=== PATIENT | male | born 1950 | race Caucasian/White ===

== ENCOUNTER → 2017-12-04 15:23 | Outpatient (CLI) | payer OTHER, SELFPAY ==
[2017-12-04 16:29] LABS: Alanine Aminotransferase 34 IU/L (21-72); Albumin 4.7 g/dL (3.5-5.0); Albumin Globulin Ratio 1.6 (1.0-2.8); Alkaline Phosphatase 112 U/L (38-126); Aspartate Aminotransferase 23 IU/L (17-59); BUN Creatinine Ratio 21.1 (6-22); Bilirubin Total 0.6 mg/dL (0.2-1.3); Blood Urea Nitrogen 19 mg/dL (9-20); Calcium 9.7 mg/dL (8.4-10.2); Carbon Dioxide 25 mmol/L (22-32); Chloride 106 mmol/L (98-107); Cholesterol 179 mg/dL (140-199); Estimated Glomerular Filt Rate > 60.0 mL/min (>60); Globulin 2.9 g/dL (1.7-4.1); Glucose 79 mg/dL (80-110); HDL Cholesterol 77 mg/dL (40-60); HEMOLYSIS < 15 (0-50); LDL Cholesterol Calculated 84 mg/dL (<100); Sodium 142 mmol/L (137-145); Total Protein 7.6 g/dL (6.3-8.2); Triglycerides 92 mg/dL (35-150)
== END ==
PROVIDERS: Family Provider Family Medicine; Visit Provider Internal Medicine
DX: E83.119 Hemochromatosis, unspecified (principal); I10 Essential (primary) hypertension
CPT/HCPCS: 36415; 80053; 80061

== ENCOUNTER → 2018-04-17 09:55 | Outpatient (CLI) | payer OTHER, SELFPAY ==
[2018-04-17 11:10] LABS: Hematocrit 41.7 % (41-53); Hemoglobin 14.3 g/dL (13.5-17.5); Mean Corpuscular HGB Conc 34.2 % (30-36); Mean Corpuscular Hemoglobin 31.2 PG (26-34); Mean Corpuscular Volume 91.2 fL (80-100); Platelet Count 197 X10^3/uL (150-400); Red Blood Cell Count 4.57 X10^6/uL (4.5-5.9); Red Cell Distribution Width 13.2 % (11.6-14.8); White Blood Cell Count 4.6 X10^3/uL (4.5-11.0)
[2018-04-17 11:34] LABS: Alanine Aminotransferase 48 IU/L (21-72); Albumin 4.9 g/dL (3.5-5.0); Albumin Globulin Ratio 1.8 (1.0-2.8); Alkaline Phosphatase 121 U/L (38-126); Aspartate Aminotransferase 26 IU/L (17-59); BUN Creatinine Ratio 22.2 (6-22); Bilirubin Total 0.5 mg/dL (0.2-1.3); Blood Urea Nitrogen 20 mg/dL (9-20); Calcium 9.6 mg/dL (8.4-10.2); Carbon Dioxide 23 mmol/L (22-32); Chloride 105 mmol/L (98-107); Estimated Glomerular Filt Rate > 60.0 mL/min (>60); Globulin 2.8 g/dL (1.7-4.1); Glucose 145 mg/dL (80-110); HEMOLYSIS < 15 (0-50); Potassium 4.2 mmol/L (3.4-5.1); Sodium 144 mmol/L (137-145); Total Protein 7.7 g/dL (6.3-8.2)
== END ==
PROVIDERS: Family Provider Family Medicine; PCP Family Medicine; Visit Provider Internal Medicine Gastroenterology
DX: K51.90 Ulcerative colitis, unspecified, without complications (principal)
CPT/HCPCS: 36415; 80053; 85027

== ENCOUNTER → 2018-06-28 10:58 | Outpatient (CLI) | payer OTHER, SELFPAY ==
--- NOTE | 2018-06-28 11:00 | DI.US.S_ITS ---
PROCEDURE: US ABD AORTA ANEURYSM SCREEN INDICATIONS: AAA, HISTORY OF SMOKING TECHNIQUE: Real time scanning was performed of the aorta and iliac arteries, with image documentation. COMPARISON: [facility], US, ABDOMEN COMPLETE, 02/13/2009, 11:19. FINDINGS: Aorta: Proximal aortic diameter measures 2.8 cm. Mid-aorta measures 2.1 cm. Distal aortic diameter is 2.1 cm. Iliac arteries: Not seen, obscured by overlying bowel gas. IMPRESSION: Negative for aneurysm. Dictated by: Josemanuel Knox M.D. on 06/28/2018 at 11:38 Approved by: Josemanuel Knox M.D. on 06/28/2018 at 11:39
== END ==
PROVIDERS: PCP Student in an Organized Health Care Education/Training Program; Visit Provider Student in an Organized Health Care Education/Training Program
DX: Z13.6 Encounter for screening for cardiovascular disorders (principal); Z87.891 Personal history of nicotine dependence
CPT/HCPCS: 76706

== ENCOUNTER → 2019-04-02 10:47 | Outpatient (CLI) | payer OTHER, SELFPAY ==
[2019-04-02 11:36] LABS: Hematocrit 40.3 % (41-53); Hemoglobin 13.7 g/dL (13.5-17.5); Mean Corpuscular HGB Conc 33.9 % (30-36); Mean Corpuscular Hemoglobin 31.8 PG (26-34); Mean Corpuscular Volume 93.6 fL (80-100); Platelet Count 185 X10^3/uL (150-400); Red Blood Cell Count 4.31 X10^6/uL (4.5-5.9); White Blood Cell Count 5.3 X10^3/uL (4.5-11.0)
[2019-04-02 12:00] LABS: HEMOLYSIS < 15 (0-50); Iron 205 ug/dL (49-181)
[2019-04-02 12:06] LABS: Alanine Aminotransferase 27 IU/L (21-72); Albumin 4.8 g/dL (3.5-5.0); Albumin Globulin Ratio 1.6 (1.0-2.8); Alkaline Phosphatase 106 U/L (38-126); Aspartate Aminotransferase 24 IU/L (17-59); Bilirubin Total 0.7 mg/dL (0.2-1.3); Blood Urea Nitrogen 19 mg/dL (9-20); Calcium 9.9 mg/dL (8.4-10.2); Carbon Dioxide 28 mmol/L (22-32); Chloride 104 mmol/L (98-107); Estimated Glomerular Filt Rate > 60.0 mL/min (>60); Glucose 90 mg/dL (80-110); HEMOLYSIS < 15 (0-50); Potassium 4.6 mmol/L (3.4-5.1); Sodium 141 mmol/L (137-145); Total Protein 7.8 g/dL (6.3-8.2)
[2019-04-02 12:11] LABS: Percent Iron Saturation 76 % (20-50); Total Iron Binding Capacity 271 ug/dL (261-462); Transferrin 237 mg/dL (206-381)
[2019-04-02 12:16] LABS: Vitamin D 25 Hydroxy (D3) 49.3 ng/mL (30.0-100.0)
[2019-04-02 12:36] LABS: Prostate Specific Antigen Scrn 0.188 ng/mL (0.1-4.0)
== END ==
PROVIDERS: PCP Student in an Organized Health Care Education/Training Program; Visit Provider Student in an Organized Health Care Education/Training Program
DX: E55.9 Vitamin D deficiency, unspecified (principal); E83.119 Hemochromatosis, unspecified; I10 Essential (primary) hypertension; Z12.5 Encounter for screening for malignant neoplasm of prostate
CPT/HCPCS: 36415; 80053; 82306; 82728; 83540; 83550; 85027; G0103

== ENCOUNTER → 2019-05-17 09:52 | Outpatient (CLI) | payer OTHER, SELFPAY ==
[2019-05-17 10:24] LABS: 585 Gram Check PASS; Dizziness NO; Postdiastolic BP 98; Postsystolic BP 141; Prediastolic 96; Presystolic 157; Pulse 71; Site of phlebotomy RAC; Swelling NO; Therapeutic Phleb Comment NO COMMENT; Zero Check Sebra Scale PASS
== END ==
PROVIDERS: PCP Student in an Organized Health Care Education/Training Program; Visit Provider Student in an Organized Health Care Education/Training Program
DX: E83.119 Hemochromatosis, unspecified (principal)
CPT/HCPCS: 99195

== ENCOUNTER → 2019-06-17 10:11 | Outpatient (CLI) | payer OTHER, SELFPAY ==
[2019-06-17 12:47] LABS: Hematocrit 40.8 % (41-53); Hemoglobin 14.3 g/dL (13.5-17.5); Mean Corpuscular HGB Conc 34.9 % (30-36); Mean Corpuscular Hemoglobin 32.5 PG (26-34); Mean Corpuscular Volume 93.1 fL (80-100); Platelet Count 192 X10^3/uL (150-400); Red Blood Cell Count 4.39 X10^6/uL (4.5-5.9); Red Cell Distribution Width 13.1 % (11.6-14.8); White Blood Cell Count 5.6 X10^3/uL (4.5-11.0)
[2019-06-17 13:38] LABS: HEMOLYSIS < 15 (0-50); Iron 201 ug/dL (49-181)
[2019-06-17 13:49] LABS: Percent Iron Saturation 76 % (20-50); Total Iron Binding Capacity 266 ug/dL (261-462); Transferrin 243 mg/dL (206-381)
== END ==
PROVIDERS: PCP Student in an Organized Health Care Education/Training Program; Visit Provider Student in an Organized Health Care Education/Training Program
DX: E83.119 Hemochromatosis, unspecified (principal)
CPT/HCPCS: 36415; 82728; 83540; 83550; 85027

== ENCOUNTER → 2019-07-31 09:45 | Outpatient (CLI) | payer OTHER, SELFPAY ==
[2019-07-31 10:30] LABS: 585 Gram Check PASS; Dizziness NO; Postdiastolic BP 89; Postsystolic BP 136; Prediastolic 93; Presystolic 140; Pulse 72; Site of phlebotomy RAC; Swelling NO; Therapeutic Phleb Comment NO COMMENT; Zero Check Sebra Scale PASS
== END ==
PROVIDERS: PCP Student in an Organized Health Care Education/Training Program; Referring Provider Student in an Organized Health Care Education/Training Program; Visit Provider Student in an Organized Health Care Education/Training Program
DX: E83.119 Hemochromatosis, unspecified (principal)
CPT/HCPCS: 99195

== ENCOUNTER → 2020-03-09 10:16 | Outpatient (CLI) | payer OTHER, SELFPAY ==
[2020-03-09 11:44] LABS: Hematocrit 39.5 % (41-53); Hemoglobin 13.7 g/dL (13.5-17.5); Mean Corpuscular HGB Conc 34.8 % (30-36); Mean Corpuscular Hemoglobin 32.6 PG (26-34); Mean Corpuscular Volume 93.7 fL (80-100); Platelet Count 210 X10^3/uL (150-400); Red Blood Cell Count 4.22 X10^6/uL (4.5-5.9); Red Cell Distribution Width 13.4 % (11.6-14.8)
[2020-03-09 12:05] LABS: Alanine Aminotransferase 32 IU/L (<50); Albumin 4.8 g/dL (3.5-5.0); Albumin Globulin Ratio 1.5 (1.0-2.8); Alkaline Phosphatase 115 U/L (38-126); Aspartate Aminotransferase 26 IU/L (17-59); BUN Creatinine Ratio 18.4 (6-22); Bilirubin Total 0.5 mg/dL (0.2-1.3); Blood Urea Nitrogen 18 mg/dL (9-20); Calcium 9.7 mg/dL (8.4-10.2); Carbon Dioxide 28 mmol/L (22-32); Chloride 103 mmol/L (98-107); Estimated Glomerular Filt Rate > 60.0 mL/min (>60); Globulin 3.3 g/dL (1.7-4.1); Glucose 88 mg/dL (80-110); HEMOLYSIS < 15 (0-50); Potassium 4.3 mmol/L (3.4-5.1); Sodium 140 mmol/L (137-145); Total Protein 8.1 g/dL (6.3-8.2)
== END ==
PROVIDERS: PCP Student in an Organized Health Care Education/Training Program; Referring Provider Internal Medicine Gastroenterology; Visit Provider Internal Medicine Gastroenterology
DX: K51.90 Ulcerative colitis, unspecified, without complications (principal)
CPT/HCPCS: 36415; 80053; 85027

== ENCOUNTER 2020-08-20 19:24 | Emergency (ER) | payer OTHER, SELFPAY ==
[2020-08-20] VITALS (8 sets, daily range): BP systolic 118–180; BP diastolic 79–109; PULSE 72–86; RESP 9–21; TEMP 36.7; O2SAT 92–99; BMI 29.3
[2020-08-20 19:45] LABS: Add Manual Diff / Slide Review NO; Basophils Absolute Auto 100 /uL (0-100); Basophils Percent Auto 1.9 % (0-2); Eosinophils Absolute Auto 600 /uL (0-450); Eosinophils Percent Auto 8.5 % (2-4); Hematocrit 44.3 % (41-53); Hemoglobin 14.8 g/dL (13.5-17.5); Lymphocytes Absolute Auto 1700 /uL (1100-4500); Lymphocytes Percent Auto 23.4 % (25-40); Mean Corpuscular HGB Conc 33.4 % (30-36); Mean Corpuscular Volume 89.8 fL (80-100); Monocytes Absolute Auto 500 /uL (0-900); Monocytes Percent Auto 7.5 % (3-14); Neutrophils Absolute Auto 4200 /uL (1500-7000); Neutrophils Percent Auto 58.7 % (50-75); Platelet Count 230 X10^3/uL (150-400); Red Blood Cell Count 4.93 X10^6/uL (4.5-5.9); Red Cell Distribution Width 14.6 % (11.6-14.8); White Blood Cell Count 7.2 X10^3/uL (4.5-11.0)
--- NOTE | 2020-08-20 19:52 | ED.GENADULT ---
HPI - General Adult General Chief complaint: Toxicology Problem Stated complaint: ETOH Time Seen by Provider: 08/20/20 19:26 Source: patient, family and EMS Mode of arrival: EMS Limitations: no limitations History of Present Illness HPI narrative: 70-year-old male who arrives with his and EMS for evaluation of alcohol intoxication and potential medication overdose. Patient does admit to drinking alcohol throughout the day today. He stated that in order to ?have some fun ?he took some of his gabapentin. He states that he was not trying to hurt or kill himself. Initially was reported that he took some of his other medicines to include propanolol but the patient denied this. He is somewhat unsure as to exactly how much of the gabapentin he took but did tell me that was only 1 tablet. He reports no symptoms. He denies any other drug use. His was the 1 who contacted EMS. Related Data Home Medications Medication Instructions Recorded Confirmed mesalamine 1.2 gram tablet,delayed 2.4 gram PO DAILY 02/14/18 08/20/20 release Respironics DreamStation Auto CPAP #1 ea 07/17/18 06/23/20 eszopiclone 2 mg PO DAILY 08/20/20 08/20/20 gabapentin 100 mg PO TID 08/20/20 08/20/20 Previous Rx's Medication Instructions Recorded lisinopril 40 mg tablet 40 mg PO QDAY #90 tab 07/26/19 fluoxetine 20 mg tablet 40 mg PO DAILY #180 tab 03/25/20 amlodipine 5 mg tablet 5 mg PO DAILY #90 tab 03/30/20 propranolol 20 mg tablet 20 mg PO BID #60 tab 06/19/20 Allergies Allergy/AdvReac Type Severity Reaction Status Date / Time erythromycin base Allergy Mild SEVERE GI Verified 08/20/20 19:36 UPSET Penicillins Allergy Mild CHILDHOOD/RASH/ITCH Verified 08/20/20 19:36 ON CHEST clindamycin [CLINDAMYCIN] Allergy Unknown Verified 08/20/20 19:36 Review of Systems Constitutional Constitutional: Denies fever(s) and Denies headache(s) ENT Ears, Nose, Mouth, and Throat: Denies headache(s) Cardiovascular Cardiovascular: Denies chest pain and Denies dyspnea Respiratory Respiratory: Denies dyspnea Gastrointestinal Gastrointestinal: Denies abdominal pain Musculoskeletal Musculoskeletal: Denies arthralgias and Denies myalgias Integumentary/Breasts Skin/Breast: Denies rash Neurologic Neurologic: Denies behavioral changes and Denies headache(s) Psychiatric Psychiatric: Denies behavioral changes Hematologic/Lymphatic On Anticoagulants: No Allergic/Immunologic Allergic/Immunologic: Denies urticaria Patient History Medical History ADHD (attention deficit hyperactivity disorder) (2013) Anemia Anxiety (2013) Chicken pox Colitis (1989) Colon polyps (2013) Cubital tunnel syndrome of both upper extremities (2013) Depression (1989) Hemochromatosis, hereditary (2012) Herpes (1977) Hyperlipidemia (2004) Hypertension (2006) Measles Mumps Performance anxiety Shingles (1977) Sleep apnea (2011) Ulcerative colitis (1989) Surgical History Anesthesia History of liver biopsy (~2013) Status post colonoscopy (1991) Family History Mother Hypertension Father Aditi's disease, pulmonary Grandfather No problems noted. Grandmother No problems noted. Grandfather No problems noted. Grandmother No problems noted. Social History marital status: details: shantell Bradley, lives [place] [facility]. 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 Smoking Status: Current some day smoker Smoking Status: Current some day smoker tobacco type: cigarettes alcohol intake frequency: a few times a month Alcohol type: beer and hard liquor Substance Use Type: does not use Exam Initial Vital Signs Initial Vital Signs: Vital Signs Temperature 98.0 F 08/20/20 19:15 Pulse Rate 86 08/20/20 19:15 Respiratory Rate 18 08/20/20 19:15 Blood Pressure 180/109 H 08/20/20 19:15 Pulse Oximetry 98 08/20/20 19:15 Const General: cooperative and comfortable Limitations: other limitations (Intoxication) [facility] Head: normal to inspection and normocephalic Resp Effort & Inspection: normal respiratory effort Auscultation: clear to auscultation bilaterally Cardio Rate: regular rate Rhythm: regular rhythm GI Inspection: non-distended Palpation: soft Skin Lesions: no lesions Rashes: no rashes Neuro General: patient alert, patient awake and patient oriented x3 Speech: speech normal Extrem General: capillary refill normal Psych Appearance: grossly normal and well kempt Scores GCS [place] coma scale eye opening: Spontaneous [place] coma scale verbal response: Orientated [place] coma scale motor response: Obey commands [place] coma scale total score: 15 Course Orders Ordered: ED Orders 08/20/20 19:30 Acetaminophen Stat Complete Blood Count AUTO DIFF Stat Comprehensive Metabolic Panel Stat Ethanol (ETOH) Stat Lipase Stat Salicylate Stat Thyroid Stimulating Hormone Stat EKG-12 Lead Stat 08/20/20 21:24 Urinalysis and Microscopic Stat Urine Drug Screen, Rapid Stat Vital Signs Vital signs: Vital Signs - 8 hr 08/20/20 19:15 08/20/20 19:31 08/20/20 20:00 Temperature 98.0 F Pulse Rate 86 80 76 Respiratory Rate 18 13 Blood Pressure 180/109 H 180/109 H Pulse Oximetry 98 98 99 08/20/20 20:01 08/20/20 20:30 08/20/20 21:00 Temperature Pulse Rate 79 75 75 Respiratory Rate 19 14 9 L Blood Pressure 147/93 H 118/82 126/79 Pulse Oximetry 99 94 92 Medical Decision Making Lab Data Lab results reviewed: Yes I reviewed the patient's lab results. Result diagrams: 08/20/20 19:30 08/20/20 19:30 Labs: Lab Results 08/20/20 08/20/20 08/20/20 Range/Units 19:30 19:30 19:30 WBC 7.2 (4.5-11.0) X10^3/uL RBC 4.93 (4.5-5.9) X10^6/uL Hgb 14.8 (13.5-17.5) g/dL Hct 44.3 (41-53) % MCV 89.8 (80-100) fL MCH 30.0 (26-34) PG MCHC 33.4 (30-36) % RDW 14.6 (11.6-14.8) % Plt Count 230 (150-400) X10^3/uL Neut % (Auto) 58.7 (50-75) % Lymph % (Auto) 23.4 L (25-40) % [place] % (Auto) 7.5 (3-14) % Eos % (Auto) 8.5 H (2-4) % Baso % (Auto) 1.9 (0-2) % Neut # (Auto) 4200 (4229-5000) /uL Lymph # (Auto) 1700 (5917-4610) /uL [place] # (Auto) 500 (0-900) /uL Eos # (Auto) 600 H (0-450) /uL Baso # (Auto) 100 (0-100) /uL Sodium 148 H (137-145) mmol/L Potassium 4.3 (3.4-5.1) mmol/L Chloride 108 H (98-107) mmol/L Carbon Dioxide 29 (22-32) mmol/L BUN 20 (9-20) mg/dL Creatinine 0.92 (0.66-1.25) mg/dL Estimated GFR > 60.0 (>60) mL/min BUN/Creatinine Ratio 21.7 (6-22) Glucose 95 (80-110) mg/dL Calcium 10.3 H (8.4-10.2) mg/dL Total Bilirubin 0.5 (0.2-1.3) mg/dL AST 59 (17-59) IU/L ALT 76 H (<50) IU/L Alkaline Phosphatase 145 H (38-126) U/L Total Protein 9.2 H (6.3-8.2) g/dL Albumin 5.3 H (3.5-5.0) g/dL Globulin 3.9 (1.7-4.1) g/dL Albumin/Globulin Ratio 1.4 (1.0-2.8) Lipase 225 (23-300) U/L TSH (0.47-4.68) uIU/mL Urine Color Urine Appearance Urine pH (4.5-8.0) Ur Specific [place] (1.000-1.035) Urine Protein (Negative) Urine Glucose (UA) (Negative) g/dL Urine Ketones (NEGATIVE) Urine Occult Blood (Negative) Urine Nitrate (Negative) Urine Bilirubin (NEGATIVE) Urine Urobilinogen (0.2) E.U./dL Ur Leukocyte Esterase (NEGATIVE) Salicylates < 1.0 (<20) mg/dL Acetaminophen < 10 L (10-30) ug/mL Ethyl Alcohol 297 H ( - 10) mg/dL 08/20/20 08/20/20 Range/Units 19:30 21:24 WBC (4.5-11.0) X10^3/uL RBC (4.5-5.9) X10^6/uL Hgb (13.5-17.5) g/dL Hct (41-53) % MCV (80-100) fL MCH (26-34) PG MCHC (30-36) % RDW (11.6-14.8) % Plt Count (150-400) X10^3/uL Neut % (Auto) (50-75) % Lymph % (Auto) (25-40) % [place] % (Auto) (3-14) % Eos % (Auto) (2-4) % Baso % (Auto) (0-2) % Neut # (Auto) (7528-7717) /uL Lymph # (Auto) (9306-1579) /uL [place] # (Auto) (0-900) /uL Eos # (Auto) (0-450) /uL Baso # (Auto) (0-100) /uL Sodium (137-145) mmol/L Potassium (3.4-5.1) mmol/L Chloride (98-107) mmol/L Carbon Dioxide (22-32) mmol/L BUN (9-20) mg/dL Creatinine (0.66-1.25) mg/dL Estimated GFR (>60) mL/min BUN/Creatinine Ratio (6-22) Glucose (80-110) mg/dL Calcium (8.4-10.2) mg/dL Total Bilirubin (0.2-1.3) mg/dL AST (17-59) IU/L ALT (<50) IU/L Alkaline Phosphatase (38-126) U/L Total Protein (6.3-8.2) g/dL Albumin (3.5-5.0) g/dL Globulin (1.7-4.1) g/dL Albumin/Globulin Ratio (1.0-2.8) Lipase (23-300) U/L TSH 1.71 (0.47-4.68) uIU/mL Urine Color Yellow Urine Appearance Clear Urine pH 6.5 (4.5-8.0) Ur Specific [place] 1.015 (1.000-1.035) Urine Protein Negative (Negative) Urine Glucose (UA) Negative (Negative) g/dL Urine Ketones Negative (NEGATIVE) Urine Occult Blood Negative (Negative) Urine Nitrate Negative (Negative) Urine Bilirubin Negative (NEGATIVE) Urine Urobilinogen 0.2 (0.2) E.U./dL Ur Leukocyte Esterase Negative (NEGATIVE) Salicylates (<20) mg/dL Acetaminophen (10-30) ug/mL Ethyl Alcohol ( - 10) mg/dL ECG Data Attestation: I personally reviewed and interpreted this ECG as follows: Prior ECG tracings: not available for review Interpretation: Sinus rhythm Ventricular rate is 78 Normal QRS QTC 419 Left axis deviation No ST T wave changes MDM Narrative Medical decision making narrative: Patient is obviously intoxicated however he is alert and oriented x3 and has a GCS of 15. He reports that he has been drinking today and his alcohol level was elevated. He states that he took the gabapentin in order to ?have some fun ?and not in order to kill himself. He did confirm that this was for recreational use. Very review of his medications shows that he actually has more gabapentin pills in his bottle normal was actually prescribed to him. He states he is not combining new prescriptions with old prescriptions. Patient was observed here in the emergency department for several hours without any signs of toxidrome except for the alcohol intoxication. I discussed this with the patient his her bedside. They are okay with going home. I feel that it is safe to discharge him into the care of his . They were given return precautions. They expressed understanding and agreement. Discharge Plan Departure Patient Disposition: Home Clinical Impression: Alcoholic intoxication Instructions: DI for Alcohol Use Disorder Activity Restrictions/Additional Instructions: I recommend that you take your medications as directed. It is important to not mix medications without alcohol. I recommend you talk with your primary doctor about this. No driving for the next 24 hours. You can eat and sleep like normal. Return to the emergency department for any new or worsening symptoms Prescriptions: No Action lisinopril 40 mg tablet 40 mg PO QDAY Qty: 90 RF: 3 fluoxetine 20 mg tablet 40 mg PO DAILY Qty: 180 RF: 1 amlodipine 5 mg tablet 5 mg PO DAILY Qty: 90 RF: 3 propranolol 20 mg tablet 20 mg PO BID Qty: 60 RF: 0 mesalamine [Lialda] 1.2 gram tablet,delayed release (DR/EC) 2.4 gram PO DAILY RF: 0 gabapentin 100 mg capsule 100 mg PO TID RF: 0 eszopiclone 2 mg tablet 2 mg PO DAILY RF: 0 (DME) [employer] DreamStation Auto CPAP Qty: 1 RF: 0 Referrals: Rocio Lemons MD [Primary Care Provider] -
[2020-08-20 19:59] LABS: Acetaminophen < 10 ug/mL (10-30); Alanine Aminotransferase 76 IU/L (<50); Albumin 5.3 g/dL (3.5-5.0); Albumin Globulin Ratio 1.4 (1.0-2.8); Alkaline Phosphatase 145 U/L (38-126); Aspartate Aminotransferase 59 IU/L (17-59); BUN Creatinine Ratio 21.7 (6-22); Bilirubin Total 0.5 mg/dL (0.2-1.3); Blood Urea Nitrogen 20 mg/dL (9-20); Calcium 10.3 mg/dL (8.4-10.2); Carbon Dioxide 29 mmol/L (22-32); Chloride 108 mmol/L (98-107); Estimated Glomerular Filt Rate > 60.0 mL/min (>60); Ethanol (ETOH) 297 mg/dL; Globulin 3.9 g/dL (1.7-4.1); Glucose 95 mg/dL (80-110); HEMOLYSIS < 15 (0-50); Potassium 4.3 mmol/L (3.4-5.1); Sodium 148 mmol/L (137-145); Total Protein 9.2 g/dL (6.3-8.2)
[2020-08-20 20:00] LABS: Lipase 225 U/L (23-300); Salicylate < 1.0 mg/dL (<20)
--- NOTE | 2020-08-20 20:14 | PC.NURSE ---
Denies SI, or overdose attempt. Reports he can't remember what meds he took. States It's recreational. I wanted to have a good time. Pills in Rx containers counted. Pt has more than expected quantity if he were taking them as prescribed.
[2020-08-20 20:57] LABS: Thyroid Stimulating Hormone 1.71 uIU/mL (0.47-4.68)
[2020-08-20 21:29] LABS: Bacteria Urine None Seen; RBC Urine None Seen (0-5/HPF); WBC Urine None Seen (0-5/HPF)
[2020-08-20 21:32] LABS: Appearance Urine UA CLEAR; Bilirubin Urine UA NEGATIVE (NEGATIVE); Color Urine UA YELLOW; Glucose Urine UA NEGATIVE (Negative); Ketones Urine UA NEGATIVE (NEGATIVE); Leukocyte Esterase Urine UA NEGATIVE (NEGATIVE); Nitrite Urine UA NEGATIVE (Negative); Occult Blood Urine UA NEGATIVE (Negative); Protein Urine UA NEGATIVE (Negative); Specific Gravity Urine UA 1.015 (1.000-1.035); Urobilinogen Urine UA 0.2 E.U./dL (0.2); pH Urine UA 6.5 (4.5-8.0)
[2020-08-20 21:37] LABS: Ur Creatinine 20 (Normal); Ur Specific Gravity 1.015 (Normal); Urine pH 6.5 (Normal)
[2020-08-20 21:38] LABS: UR Morphine/Opiate cutoff 300 Negative (Negative); Urine Amphetamines Negative (Negative); Urine Barbiturates Negative (Negative); Urine Benzodiazepines Negative (Negative); Urine Cocaine Negative (Negative); Urine MDMA Negative (Negative); Urine Methadone Negative (Negative); Urine Methamphetamines Negative (Negative); Urine Oxycodone Negative (Negative); Urine Phencyclidine Negative (Negative); Urine Tetrahydrocannabinol Negative (Negative); Urine Tricyclic Antidepressant Negative (Negative)
[2020-08-20 21:43] LABS: Culture Indicated Urine Cult Not Indicated
--- NOTE | 2020-09-23 15:33 | ONC.SCHED ---
Left patient a msg to get him scheduled for new patient apt. here at the [facility].
== END 2020-08-20 21:58 | disposition home or self-care (01) ==
PROVIDERS: Emergency Provider Emergency Medicine; PCP Family Medicine; Referring Provider Family Medicine
DX: F10.129 Alcohol abuse with intoxication, unspecified (principal); Y90.8 Blood alcohol level of 240 mg/100 ml or more; R07.9 Chest pain, unspecified
CPT/HCPCS: 36415; 80053; 80305; 80320; 80329; 81001; 83690; 84443; 85025; 93005; 99283; 99284; G0480

== ENCOUNTER → 2020-08-26 10:17 | Outpatient (CLI) | payer MEDICARE, SELFPAY ==
[2020-08-26] MEDS: COVID-19 VACC #1, MRNA(MOD) 100 MCG/0.5 ML VIAL IM (10:30)
== END ==
PROVIDERS: PCP Family Medicine; Visit Provider Internal Medicine
DX: Z23 Encounter for immunization (principal)
CPT/HCPCS: 0011A; 91301

== ENCOUNTER → 2020-09-23 10:10 | Outpatient (CLI) | payer MEDICARE, SELFPAY ==
[2020-09-23] MEDS: COVID-19 VACC #2, MRNA(MOD) 100 MCG/0.5 ML VIAL IM (10:16)
== END ==
PROVIDERS: PCP Family Medicine; Visit Provider Internal Medicine
DX: Z23 Encounter for immunization (principal)
CPT/HCPCS: 0012A; 91301

== ENCOUNTER → 2020-11-20 10:35 | Outpatient (CLI) | payer OTHER, SELFPAY ==
--- NOTE | 2020-11-20 10:37 | DI.US.S_ITS ---
PROCEDURE: US ABDOMEN COMPLETE INDICATIONS: HEMOCHROMATOSIS TECHNIQUE: Real-time scanning was performed of the abdominal and retroperitoneal organs, with image documentation. COMPARISON: [facility], US, ABDOMEN COMPLETE, 02/13/2009, 11:19. FINDINGS: Liver: Liver is normal in size and homogeneous in echotexture, mildly hyperechoic consistent with fatty infiltration and/or early cirrhosis.. Gallbladder: Gallbladder appears Biliary ducts: Intrahepatic bile ducts are non-dilated. Extrahepatic bile duct caliber measures 6.5 mm. Normal is 6-7 mm or less in diameter, or 10 mm or less post-cholecystectomy. Pancreas: Visualized portions of the pancreas are sonographically normal. The pancreatic tail is poorly seen due to bowel gas. Spleen: Spleen is normal in size and homogeneous in echotexture. Kidneys: Kidneys are normal in size and echotexture. Right kidney measures 11.9 cm long; left kidney measures 10 point cm long. No hydronephrosis or nephrolithiasis. No solid masses. Aorta: Visualized aorta is normal in caliber at less than 3 cm. Iliacs: Proximal common iliac arteries are normal in caliber at less than 2.5 cm. IVC: Intrahepatic inferior vena cava is patent. Miscellaneous: No free abdominal fluid. IMPRESSION: Mild increased echotexture of the liver, no sign of hepatic mass or portal hypertension is seen. No ascites is found. Dictated by: Ralph Greenfield M.D. on 11/20/2020 at 14:49 Approved by: Rlaph Greenfield M.D. on 11/20/2020 at 14:52
[2020-11-20 11:34] LABS: Add Manual Diff / Slide Review NO; Basophils Absolute Auto 100 /uL (0-100); Basophils Percent Auto 1.5 % (0-2); Eosinophils Absolute Auto 300 /uL (0-450); Eosinophils Percent Auto 7.8 % (2-4); Hematocrit 38.2 % (41-53); Hemoglobin 13.1 g/dL (13.5-17.5); Lymphocytes Absolute Auto 1000 /uL (1100-4500); Lymphocytes Percent Auto 23.1 % (25-40); Mean Corpuscular HGB Conc 34.2 % (30-36); Mean Corpuscular Hemoglobin 30.6 PG (26-34); Mean Corpuscular Volume 89.3 fL (80-100); Monocytes Absolute Auto 400 /uL (0-900); Monocytes Percent Auto 9.7 % (3-14); Neutrophils Absolute Auto 2500 /uL (1500-7000); Neutrophils Percent Auto 57.9 % (50-75); Platelet Count 194 X10^3/uL (150-400); Red Blood Cell Count 4.28 X10^6/uL (4.5-5.9); Red Cell Distribution Width 12.8 % (11.6-14.8); White Blood Cell Count 4.4 X10^3/uL (4.5-11.0)
[2020-11-20 11:50] LABS: Alanine Aminotransferase 30 IU/L (<50); Albumin 4.5 g/dL (3.5-5.0); Albumin Globulin Ratio 1.4 (1.0-2.8); Alkaline Phosphatase 115 U/L (38-126); Aspartate Aminotransferase 31 IU/L (17-59); BUN Creatinine Ratio 21.3 (6-22); Bilirubin Total 0.5 mg/dL (0.2-1.3); Blood Urea Nitrogen 20 mg/dL (9-20); Calcium 9.5 mg/dL (8.4-10.2); Carbon Dioxide 29 mmol/L (22-32); Chloride 107 mmol/L (98-107); Estimated Glomerular Filt Rate > 60.0 mL/min (>60); Globulin 3.2 g/dL (1.7-4.1); Glucose 93 mg/dL (80-110); HEMOLYSIS < 15 (0-50); Potassium 4.2 mmol/L (3.4-5.1); Sodium 142 mmol/L (137-145); Total Protein 7.7 g/dL (6.3-8.2)
[2020-11-20 11:56] LABS: HEMOLYSIS < 15 (0-50); Iron 139 ug/dL (49-181)
[2020-11-20 12:07] LABS: Percent Iron Saturation 51 % (20-50); Total Iron Binding Capacity 270 ug/dL (261-462); Transferrin 216 mg/dL (206-381)
[2020-11-20 12:23] LABS: Ferritin 183 ng/mL (18-464)
[2020-11-20 12:30] LABS: Thyroid Stimulating Hormone 1.41 uIU/mL (0.47-4.68)
== END ==
PROVIDERS: PCP Family Medicine; Referring Provider Internal Medicine Hematology & Oncology; Visit Provider Internal Medicine Hematology & Oncology
DX: E83.110 Hereditary hemochromatosis (principal)
CPT/HCPCS: 36415; 76700; 80053; 82728; 83540; 83550; 84443; 85025

== ENCOUNTER → 2021-11-17 09:42 | Outpatient (CLI) | payer OTHER, SELFPAY ==
[2021-11-17 10:43] LABS: Hematocrit 35.4 % (41-53); Mean Corpuscular Hemoglobin 30.4 PG (26-34); Mean Corpuscular Volume 89.5 fL (80-100); Platelet Count 221 X10^3/uL (150-400); Red Blood Cell Count 3.96 X10^6/uL (4.5-5.9); Red Cell Distribution Width 13.6 % (11.6-14.8)
[2021-11-17 12:56] LABS: HEMOLYSIS < 15 (0-50); Iron 184 ug/dL (49-181)
[2021-11-17 13:08] LABS: Percent Iron Saturation 64 % (20-50); Total Iron Binding Capacity 287 ug/dL (261-462); Transferrin 230 mg/dL (206-381)
[2021-11-17 13:12] LABS: Ferritin 55 ng/mL (18-464)
== END ==
PROVIDERS: PCP Family Medicine; Referring Provider Internal Medicine Gastroenterology; Visit Provider Internal Medicine Gastroenterology
DX: D50.9 Iron deficiency anemia, unspecified (principal)
CPT/HCPCS: 36415; 82728; 83540; 83550; 85027

== ENCOUNTER → 2022-06-10 09:46 | Outpatient (CLI) | payer OTHER, SELFPAY | PROVIDERS: PCP Family Medicine; Referring Provider Internal Medicine Hematology & Oncology; Visit Provider Internal Medicine Hematology & Oncology | DX: E83.119 Hemochromatosis, unspecified (principal) | CPT/HCPCS: 99195 ==

== ENCOUNTER → 2022-09-05 09:44 | Outpatient (CLI) | payer OTHER, SELFPAY ==
[2022-09-05 10:13] LABS: Hematocrit 38.4 % (41-53); Hemoglobin 13.2 g/dL (13.5-17.5)
[2022-09-05 10:57] LABS: 585 Gram Check P; Prediastolic 88; Presystolic 134; Pulse 102; Temperature 98.7; Zero Check Sebra Scale P
[2022-09-05 10:58] LABS: Amount Collected in g 528; Dizziness N; Postdiastolic BP 83; Postsystolic BP 113; Site of phlebotomy RAC; Swelling N; Therapeutic Phleb Comment Y
[2022-09-05 11:08] LABS: Ferritin 66 ng/mL (18-464)
[2022-09-05 11:11] LABS: INR 1.1 (0.9-1.3); Prothrombin Time 12.3 SECONDS (10.1-12.7)
[2022-09-05 11:28] LABS: Erythrocyte Sedimentation Rate 19 MM/HR (0-15)
[2022-09-05 12:18] LABS: Vitamin D 25 Hydroxy (D3) 42.6 ng/mL (30.0-100.0)
[2022-09-05 17:06] LABS: C-Reactive Protein Quant < 0.5 mg/dL (<1.0)
[2022-09-05 17:49] LABS: Vitamin B12 598 pg/mL (239-931)
== END ==
PROVIDERS: Internal Medicine Hematology & Oncology; PCP Family Medicine; Referring Provider Internal Medicine Gastroenterology; Visit Provider Internal Medicine Gastroenterology
DX: E83.110 Hereditary hemochromatosis (principal); K51.90 Ulcerative colitis, unspecified, without complications
CPT/HCPCS: 36415; 82306; 82607; 82728; 85014; 85018; 85610; 85651; 86140; 99195

== ENCOUNTER → 2022-09-24 09:06 | Outpatient (CLI) | payer OTHER, SELFPAY ==
--- NOTE | 2022-09-24 09:07 | DI.MRI.S_ITS ---
PROCEDURE: MR PELVIS WO/W CON INDICATIONS: prostate cancer TECHNIQUE: Coronal HASTE, axial T1 FSE with fat saturation, 3-plane nonbreath-hold T2 FSE. After the administration of contrast, dynamic axial, delayed axial and coronal VIBE or 2-D FLASH with fat saturation through the pelvis. Optional diffusion weighted imaging and ADC may be performed. COMPARISON: None. FINDINGS: Image quality: Diffusion weighted and dynamic contrast enhanced images are diagnostic. Prostate: Gland size is 3.6 x 3.3 x 3.9 cm; ellipsoid gland volume is 24 mL. Mild linear and wedge-shaped ADC hypointensities present within the prostate peripheral zone with indistinct T2 correlates (PI-RADS 2 findings). No suspicious transition zone lesion identified. Genitourinary system: Bladder wall thickness is normal. Distal ureters are non distended. Bowel and peritoneum: No pathologic free pelvic fluid. Inferior colon and small bowel loops are normal in caliber. Nodes and vessels: No pelvic or inguinal adenopathy by size criteria. Iliac vessels are normal in caliber. Bones: Marrow demonstrates unremarkable overall signal, without lesions to suggest metastases. IMPRESSION: 1. No large or highly suspicious focal prostate lesion identified. 2. No suspicious lymph nodes identified in the imaged pelvis. Dictated by: Thaddeus Chandra M.D. on 09/26/2022 at 8:29 Approved by: Thaddeus Chandra M.D. on 09/26/2022 at 9:08
== END ==
PROVIDERS: PCP Family Medicine; Referring Provider Specialist; Visit Provider Specialist
DX: N40.3 Nodular prostate with lower urinary tract symptoms (principal)
CPT/HCPCS: 72197; A9579

== ENCOUNTER 2023-02-28 07:58 | Day surgery (SDC) | payer OTHER, SELFPAY ==
[2023-02-27 08:39] VITALS: BMI 26.4
[2023-02-28] MEDS: LACTATED RINGERS 1,000 ML 100 ML IV (08:27)
[2023-02-28 08:44] VITALS: BP 153/88; PULSE 90; RESP 16; TEMP 36.4; O2SAT 99; BMI 26.4
--- NOTE | 2023-02-28 08:56 | PM.PREOP ---
Pre-operative Note COVID-19 COVID-19 status: Not tested Interval Note History & Physical reviewed/Exam performed by Physician: Yes Changes to H&P: No ASA Class (for procedural sedation): II
[2023-02-28] MEDS: CEFAZOLIN 2 GM/100 ML PREMIX 100 ML IV (09:22)
--- NOTE | 2023-02-28 09:29 | SUR.OPER ---
Supine on padded OR bed, head on pillow, arms secured on padded arm boards at <90 degrees abduction, legs uncrossed, safety belt at thigh, tape over blanket over lower legs.
[2023-02-28] MEDS: BUPIVACAINE 0.5% (PF) 30 ML, EPINEPHrine 0.15 MG INJ (09:46)
--- NOTE | 2023-02-28 10:04 | PM.OP.1 ---
Operative Date/Time/Diagnoses Date of procedure: 02/28/23 Time of procedure: 10:04 Pre-op diagnosis: Umbilical hernia Procedure & Clinicians Procedure: Open umbilical hernia repair with mesh Same procedure as scheduled: Yes Surgeon: Bashir Arguelles Ophthalmic Technologist: Jose Lopez Operative Notes Procedure in detail: Ancef was administered. The patient was brought to the operating room, placed on the table in the supine position and general anesthesia was induced. The abdomen was prepped and draped in the usual fashion. A time-out was performed. A 4 cm curvilinear incision was made inferior to the umbilicus. The hernia sac was dissected free from the surrounding subcutaneous adipose tissue. The sac was open and some intra-abdominal fatty tissue was resected. The fascia was then closed transversely with 2 interrupted 0 Ethibond sutures. The subcutaneous adipose tissue was cleared off of the anterior sheath circumferentially about 1 cm in each direction. A piece of polypropylene mesh was trimmed to fit over the fascial closure and secured with Tisseel. Once the Tisseel was dried the umbilical skin was tacked down to the deep tissue with a single 3-0 Vicryl stitch. The skin was closed with multiple interrupted 3-0 Vicryl dermal sutures followed by a running 4 Monocryl subcuticular closure. Steri-Strips were applied and an abdominal binder was applied. EBL: 10 mL Jose CAPONE provided assistance with exposure, retraction and closure of incisions. Post-operative Condition: stable Disposition: PACU
[2023-02-28 10:05] VITALS: BP 132/84; PULSE 88; RESP 11; TEMP 36.6; O2SAT 97
[2023-02-28 10:11] VITALS: BP 148/81; PULSE 92; RESP 13; TEMP 36.6; O2SAT 97
[2023-02-28 10:18] VITALS: BP 128/76; PULSE 88; RESP 12; TEMP 36.6; O2SAT 97
[2023-02-28] MEDS: ONDANSETRON 4 MG/2 ML INJ IV (10:20)
[2023-02-28 10:22] VITALS: BP 118/71; PULSE 82; RESP 12; O2SAT 100
[2023-02-28] MEDS: hydrOXYzine 50 MG/ML INJ 25 MG IM (10:31)
[2023-02-28 10:32] VITALS: BP 118/78; PULSE 83; RESP 18; TEMP 36.4; O2SAT 99
== END 2023-02-28 11:07 | disposition home or self-care (01) ==
PROVIDERS: PCP Family Medicine; Referring Provider Surgery; Visit Provider Surgery
PROC: (CPT 49591; principal; 2023-02-28 09:15)
DX: K42.9 Umbilical hernia without obstruction or gangrene (principal)
CPT/HCPCS: 49591; 49592; J0171; J0330; J0690; J1100; J2405; J2704; J3010; J3410

== ENCOUNTER → 2023-10-09 17:22 | Outpatient (ROUT) | payer OTHER, SELFPAY ==
[2023-10-09 18:41] LABS: Adenovirus Not Detected (Not Detect); B. parapertussis Not Detected (Not Detecte); Bordetella pertussis Not Detected (Not Detect); Chlamydophila pneumoniae Not Detected (Not Detect); Coronavirus 229E Not Detected (Not Detect); Coronavirus HKU1 Not Detected (Not Detect); Coronavirus NL 63 Not Detected (Not Detect); Coronavirus OC43 Not Detected (Not Detect); Human Metapneumovirus Not Detected (Not Detect); Human Rhinovirus/Enterovirus Not Detected (Not Detect); Influenza A Not Detected (Not Detect); Influenza B Not Detected (Not Detect); Mycoplasma pneumoniae Not Detected (Not Detect); Parainfluenza Virus 1 Not Detected (Not Detect); Parainfluenza Virus 2 Not Detected (Not Detect); Parainfluenza Virus 3 Not Detected (Not Detect); Parainfluenza Virus 4 Not Detected (Not Detect); Respiratory Syncytial Virus Not Detected (Not Detect); SARS- CoV-2 Not Detected (Not Detecte)
== END ==
PROVIDERS: PCP Family Medicine; Visit Provider Family Medicine
DX: R50.9 Fever, unspecified (principal); R05.1 Acute cough
CPT/HCPCS: 87633

== ENCOUNTER → 2023-11-08 13:00 | Outpatient (CLI) | payer OTHER, SELFPAY ==
--- NOTE | 2023-11-08 12:15 | DI.RAD.S_ITS ---
PROCEDURE: XR CERVICAL SPINE 2V OR 3V INDICATIONS: NECK PAIN TECHNIQUE: 3 view(s) of the cervical spine were acquired. COMPARISON: None. FINDINGS: Bones: No fractures or dislocations to the T1 level. The lateral masses of C1 appear intact on the odontoid view. No suspicious bony lesions. Moderate disc height loss at C4-5, C5-6, C6-7. Mild disc height loss at remaining levels. Diffuse facet arthrosis. Soft tissues: No prevertebral soft tissue swelling. IMPRESSION: Mild to moderate, multilevel degenerative disc disease and diffuse facet arthrosis. Dictated by: Filemon Thomas M.D. on 11/08/2023 at 15:46 Approved by: Filemon Thomas M.D. on 11/08/2023 at 15:47
== END ==
PROVIDERS: PCP Family Medicine; Referring Provider Family Medicine; Visit Provider Family Medicine
DX: M47.812 Spondylosis without myelopathy or radiculopathy, cervical region (principal); M50.321 Other cervical disc degeneration at C4-C5 level
CPT/HCPCS: 72040

== ENCOUNTER → 2023-12-20 09:23 | Outpatient (CLI) | payer OTHER, SELFPAY ==
[2023-12-20 10:38] LABS: Hematocrit 35.8 % (41-53); Hemoglobin 12.3 g/dL (13.5-17.5)
[2023-12-20 11:28] LABS: Ferritin 33 ng/mL (18-464)
== END ==
PROVIDERS: PCP Family Medicine; Referring Provider Internal Medicine Hematology & Oncology; Visit Provider Internal Medicine Hematology & Oncology
DX: E83.110 Hereditary hemochromatosis (principal)
CPT/HCPCS: 36415; 82728; 85014; 85018

== ENCOUNTER → 2024-04-26 08:28 | Outpatient (CLI) | payer OTHER, SELFPAY ==
--- NOTE | 2024-04-26 08:29 | DI.US.S_ITS ---
PROCEDURE: US ABDOMEN LIMITED INDICATIONS: ELEVATED ALKALINE PHOSPHATE TECHNIQUE: Real-time scanning was performed of the abdominal and retroperitoneal organs, with image documentation. COMPARISON: [facility], US, US ABDOMEN COMPLETE, 11/20/2020, 10:46. FINDINGS: Liver: Measures 13.5 cm in length. Mildly heterogeneous. Gallbladder: No definite gallstones. Possible gallbladder polyp measuring 0.3 cm near the neck. No wall thickening. No pericholecystic edema. Negative sonographic Whitman's sign. Biliary ducts: Intrahepatic bile ducts are non-dilated. Extrahepatic bile duct caliber measures 8 mm. Normal is 6-7 mm or less in diameter, or 10 mm or less post-cholecystectomy. Pancreas: Visualized portions of the pancreas are sonographically normal. Tail is not well seen due to bowel gas. Miscellaneous: No free abdominal fluid. IMPRESSION: 1. Liver appears mildly heterogeneous. This could represent hepatocellular disease. Hepatic steatosis could have this appearance 2. Possible gallbladder polyp measuring 3 mm. No further follow-up imaging is required given its small size. 3. CBD is minimally prominent measuring 8 mm. Recommend correlation with bilirubin. MRCP and/or MRI liver could be considered for further evaluation. Dictated by: Aric Raymond M.D. on 04/26/2024 at 13:33 Approved by: Aric Raymond M.D. on 04/26/2024 at 13:37
== END ==
LOC: US 08:28
PROVIDERS: PCP Family Medicine; Referring Provider Family Medicine; Visit Provider Family Medicine
DX: R74.8 Abnormal levels of other serum enzymes (principal)
CPT/HCPCS: 76705

== ENCOUNTER → 2024-05-03 08:28 | Outpatient (CLI) | payer OTHER, SELFPAY ==
--- NOTE | 2024-05-03 08:31 | DI.MRI.S_ITS ---
PROCEDURE: MR AB PANCREATIC/MRCP PROTOCOL INDICATIONS: DILATION OF COMMON BILE DUCT TECHNIQUE: Coronal HASTE through the abdomen, axial 2-D FLASH in- and [id number], and breath-hold T2 FSE with fat saturation through the biliary system and pancreas. Oblique coronal and axial thin-slice HASTE, radial thick-slab HASTE centered on the extrahepatic bile ducts. Intravenous secretin: Not requested. COMPARISON: [facility], MR, MR PELVIS WO/W CON, 09/24/2022, 9:38. [facility], US, US ABDOMEN LIMITED, 04/26/2024, 8:37. FINDINGS: Image quality: Diagnostic Lower chest: Small fat containing Bochdalek's hernias. No pleural effusions. Lungs are not well evaluated on MRI. Liver: No focal lesion in the liver no significant chemical shift abnormality to suggest significant steatosis. Gallbladder and biliary system: CBD measures 6 millimeters, which is within normal limits. no definite filling defect is seen. Pancreas: A minimally dilated duct is seen at the pancreatic head without discrete obstructing mass. The pancreatic duct head measures 5-6 millimeters just before the common channel. No significant atrophy of the parenchyma. Spleen: Nonenlarged Adrenals: No discrete nodules Kidneys: No solid mass or hydronephrosis. Vessels and lymph nodes: The main portal vein appears patent. No abdominal aortic aneurysm or pathologic lymph nodes by size criteria. Bowel and peritoneum: No evidence of small bowel obstruction. No pathologic ascites. Body wall: Unremarkable Bones: There are degenerative osseous changes in the visualized spine. IMPRESSION: No pathologic dilation of the biliary tree or filling defect identified. The pancreatic duct at the head is mildly dilated at 5-6 millimeters, without discrete mass seen by MRI. Differential favors ampullary stenosis or senescent changes. A mass that is occult on imaging is also possible. Consider ERCP depending on level of clinical concern. Other incidental findings above. Dictated by: Mason Ingram M.D. on 05/03/2024 at 10:56 Approved by: Mason Ingram M.D. on 05/03/2024 at 11:01
== END ==
LOC: MRI 08:30
PROVIDERS: PCP Family Medicine; Referring Provider Family Medicine; Visit Provider Family Medicine
DX: K83.8 Other specified diseases of biliary tract (principal); K86.89 Other specified diseases of pancreas
CPT/HCPCS: 74183; A9579

== ENCOUNTER → 2025-02-21 12:46 | Outpatient (CLI) | payer OTHER, SELFPAY ==
--- NOTE | 2025-02-21 12:48 | DI.RAD.S_ITS ---
PROCEDURE: XR KNEE LT 1TO2V INDICATIONS: KNEE PAIN TECHNIQUE: 2 views of the knee were acquired. COMPARISON: None. FINDINGS: Bones: No fractures or dislocations. Moderate medial and lateral tibiofemoral and patellofemoral compartment narrowing with associated osteophytosis. No suspicious bony lesions. Soft tissues: No joint effusion. No suspicious soft tissue calcifications. IMPRESSION: KL grade 2 tricompartmental osteoarthritis without evidence of acute bony abnormality or significant effusion. Dictated by: Alessandro Torres M.D. on 02/24/2025 at 6:21 Approved by: Alessandro Torres M.D. on 02/24/2025 at 6:22
--- NOTE | 2025-02-21 12:48 | DI.RAD.S_ITS ---
PROCEDURE: XR KNEE RT 1TO2V INDICATIONS: KNEE PAIN TECHNIQUE: 2 views of the knee were acquired. COMPARISON: None. FINDINGS: Bones: No fractures or dislocations. Moderate medial and lateral tibiofemoral and patellofemoral compartment narrowing with associated osteophytosis. No suspicious bony lesions. Soft tissues: Trace joint effusion. No suspicious soft tissue calcifications. IMPRESSION: KL grade 2 tricompartmental osteoarthritis without evidence of acute bony abnormality. Trace joint effusion Dictated by: Alessandro Torres M.D. on 02/24/2025 at 6:22 Approved by: Alessandro Torres M.D. on 02/24/2025 at 6:23
== END ==
PROVIDERS: PCP Family Medicine; Referring Provider Family Medicine; Visit Provider Family Medicine
DX: M17.0 Bilateral primary osteoarthritis of knee (principal); M25.561 Pain in right knee; M25.562 Pain in left knee
CPT/HCPCS: 73560